=== PATIENT | male | born 1960 | race Caucasian/White ===

== ENCOUNTER 2019-01-06 14:42 | Emergency (ER) | payer MEDICAID ==
[~2019-01-06] VITALS: Ht 167.6 cm; Wt 87.2 kg
[2019-01-06 15:13] VITALS: Ht 167.6 cm; Wt 87.2 kg
--- NOTE | 2019-01-06 20:15 | ERD ---
ER Documentation Chief Complaint Chief Complaint lower abdominal pain x 5 days HPI This is a 58-year-old male with a 16-year history of right inguinal/scrotal hernia. He says that is been bothering him more over the past 5 days but currently pain is better. He states that he occasionally has pain and will throw up but he has not done that in quite a while. No testicular pain or penile pain. He says the pain is located in the right groin where the swelling is chronically. No dysuria hematuria no back pain ROS All systems reviewed and are negative except as per history of present illness. Medications Home Meds Active Scripts Ibuprofen* (Motrin*) 600 Mg Tab, 600 MG PO Q8, #30 TAB Prov:ABRAM BADILLO DO 01/06/19 Hydrocodone/Acetaminophen ([place] 10-325 Tablet) 1 Each Tablet, 1 TAB PO Q6H PRN for PAIN, #7 TAB Prov:ABRAM BADILLO DO 01/06/19 Physical Exam Vitals Vital Signs Date Temp Pulse Resp B/P (MAP) Pulse Ox O2 O2 Flow FiO2 Time Delivery Rate 01/06/19 98.6 79 20 145/65 95 Room Air 19:50 (91) 01/06/19 97.3 73 18 140/101 97 15:13 (114) Physical Exam Const: No acute distress Head: Atraumatic Eyes: Normal Conjunctiva ENT: Normal External Ears, Nose and Mouth. Neck: Full range of motion. No meningismus. Resp: Clear to auscultation bilaterally Cardio: Regular rate and rhythm, no murmurs Abd: Soft, non tender, non distended. Normal bowel sounds Skin: No petechiae or rashes Back: No midline or flank tenderness Ext: No cyanosis, or edema Neur: Awake and alert Psych: Normal Mood and Affect Results 24 hrs Current Medications Medications Dose Sig/Dylan Start Time Status Last (Trade) Ordered Route PRN Stop Time Admin Dose Reason Admin 1 tab ONCE ONCE 01/06/19 DC 01/06/19 Acetaminophen PO 20:30 20:16 / 01/06/19 20:31 Hydrocodone Bitart ([place] (10/325)) Procedures/MDM Ordering MD: ABRAM BADILLO DO Location: E/R Room/Bed: PROCEDURE: CT abdomen and pelvis without contrast. CLINICAL INDICATION: Abdominal pain. Inguinal hernia TECHNIQUE: CT scan of the abdomen and pelvis without contrast was performed on a multi-slice CT scanner . Sagittal and coronal reformatted images were obtained from the axial source images. One or more of the following dose reduction techniques were used: - Automated exposure control. - Adjustment of the mA and/or kV according to patient size. - Use of iterative reconstruction technique. DICOM images are available DLP 888.6 mGycm. CTDIvol 13.3 mGy COMPARISON: None FINDINGS: Fine detail of the soft tissues is limited secondary to the lack of IV contrast. Evaluation for enhancing lesions cannot be performed. Lower thorax:The lung bases are clear. Coronary artery calcifications are seen in the heart. Liver: There is hepatomegaly and fatty infiltration of the liver with no gross focal lesion. Biliary: The gallbladder is unremarkable without surrounding inflammation. No biliary dilatation. Pancreas: Homogeneous density of the pancreas without visible focal lesion or cystic abnormality. There is no pancreatic ductal dilatation. Spleen: Unremarkable without enlargement or focal lesion. Adrenal Glands: The adrenal glands are within normal limits without mass. Urinary: The kidneys are symmetric in size bilaterally. Multiple punctate nonobstructing left upper pole renal stones are seen measuring less than 3 mm in diameter. There is no hydronephrosis. The bladder dome extends into the right inguinal hernia. There is a slightly elevated trabecular appearance the bladder wall. Gastrointestinal: There is no obstruction or appendicitis. A portion of the small bowel extends into the right inguinal hernia without visible strangulation. No evidence of bowel obstruction or inflammation. Lymph nodes: There are no enlarged lymph nodes. Vascular: There is aortic atherosclerosis without aneurysmal dilatation. Peritoneum/mesentery: No free fluid or free air. Reproductive organs: The prostate is at the upper limits of normal in size. Musculoskeletal: Degenerative changes are seen in the lumbar spine with no acute osseous abnormality. There is a large right inguinal hernia as described above and there is a small fat containing left inguinal hernia. Other: None IMPRESSION: There is a large right inguinal hernia containing the bladder dome and a portion of small bowel without strangulation. There is a small fat containing left ingui nal hernia. There is a trabecular appearance the bladder wall which could represent sequelae of outflow obstruction or dysfunction. Fatty liver. Nonobstructing left upper pole renal calculi. No obstruction or appendicitis. RPTAT: AA .Schuyler Del Cid MD, MD Date Time Electronically viewed and signed by .Schuyler Del Cid MD, MD on 01/06/2019 21:04 .J/ CC: ABRAM BADILLO DO [id number] This patient has no obstruction he was she will be discharged home with follow- up with general surgery for his enlarged scrotum due to inguinal hernia Departure Diagnosis: Primary Impression: Right inguinal hernia Condition: Stable ABRAM BADILLO DO Jan 06, 2019 20:15
[2019-01-06] MEDS ORDERED: HYDROCODONE/APAP (10/325) TAB PO ONE (20:30)
[2019-01-06] MEDS ORDERED: HYDR-3980 PO (21:49)
[2019-01-06] MEDS ORDERED: IBUP-1542 PO (21:50)
[2019-01-06 21:53] VITALS: BP 143/68; PULSE 75; RESP 20
== END 2019-01-06 21:54 | disposition home or self-care (01) ==
LOC: E/R 14:42
DX: K40.90 Unilateral inguinal hernia, without obstruction or gangrene, not specified as recurrent (principal)
CPT/HCPCS: 74176; Z7502; Z7610